=== PATIENT | female | born 1970 | race Caucasian/White ===

== ENCOUNTER → 2016-05-07 | Outpatient (CLI) | payer BC ==
--- NOTE | 2016-05-07 15:47 | CR ---
EXAMINATION: Abdomen HISTORY: Pain COMPARISON: 04/25/2015 TECHNIQUE: AP views FINDINGS: There is a nonobstructive bowel gas pattern noted. Clips are noted within the right upper quadrant. No abnormal calcifications project over the kidneys. Mild sclerotic areas are noted within the right ilium and left femoral head, unchanged. Otherwise the visualized osseous structures appea r normal. IMPRESSION: 1. No acute findings demonstrated within the abdomen.
== END ==
LOC: MW.CHOBGYN 14:23
PROVIDERS: ATTEND Nurse Practitioner Women's Health
DX: R10.9 Unspecified abdominal pain (principal)
CPT/HCPCS: 74000; 74000-26; 81001

== ENCOUNTER → 2016-06-04 | Outpatient (CLI) | payer BC ==
--- NOTE | 2016-06-04 17:06 | CT ---
CT of the abdomen and pelvis without contrast. HISTORY: Renal calculus TECHNIQUE: Axial CT images were obtained of the abdomen and pelvis without contrast. Coronal and sag ittal reconstructions obtained. FINDINGS: The lung bases are clear, no pleural effusion. There is minimal fatty infiltration of the liver. The spleen, adrenal glands, and pancreas appear un remarkable for noncontrast examination. Cholecystectomy clips are noted. There is no bulky retroperi toneal lymphadenopathy. No abdominal ascites. Small punctate 1 mm nonobstructing left renal stones are noted. No evidence of obstructive uropathy bilaterally. The large and small bowel are normal in caliber without evidence of obstruction. There is no bulky pelvic lymphadenopathy. No free fluid. No free air. The urinary bladder is decompressed. The visualized osseous structures appear normal. IMPRESSION: 1. Punctate nonobstructing left renal stones. 2. Cholecystectomy and appendectomy. 3. Minimal fatty infiltration of the liver.
== END ==
LOC: MW.CHUR 15:48
PROVIDERS: ATTEND Urology
DX: R10.9 Unspecified abdominal pain (principal); N20.0 Calculus of kidney; R50.9 Fever, unspecified; Z90.49 Acquired absence of other specified parts of digestive tract
CPT/HCPCS: 74176; 74176-26; 81001

== ENCOUNTER 2018-09-08 21:51 | Emergency (ER) | payer BC ==
--- NOTE | 2018-09-08 22:46 | EDM.PDOC ---
ED HPI GENERAL MEDICAL PROBLEM - General Chief Complaint: Trauma Stated Complaint: INJURED PELVIS,FELL OFF HORSE Time Seen by Provider: 09/08/18 21:56 right hip/back Pain Score (Numeric/FACES): 5 - Related Data Allergies Allergy/AdvReac Type Severity Reaction Status Date / Time Coconut Allergy Swelling Verified 09/08/18 21:58 Penicillins Allergy Anaphylactic Verified 09/08/18 21:58 Shock Sulfa (Sulfonamide Allergy Seizure Verified 09/08/18 21:58 Antibiotics) dermabond Allergy wound Uncoded 09/08/18 21:58 infection Home Meds: Home Meds Atenolol [Tenormin] 50 mg PO DAILY 06/01/14 [History] Montelukast Sodium [Singulair] 1 tab PO BEDTIME 06/01/14 [History] metFORMIN HCl [Metformin HCl] 1 tab PO DAILY 06/01/14 [History] Venlafaxine HCl [Venlafaxine ER] 75 mg PO BID 09/11/15 [History] Zolpidem Tartrate 10 mg PO BEDTIME PRN 09/11/15 [History] Cholecalciferol (Vitamin D3) [Vitamin D3] 2,000 unit PO DAILY 09/14/15 [History] Lansoprazole 15 mg PO DAILY 09/14/15 [History] oxyCODONE HCl/Acetaminophen [Percocet 7.5-325 mg Tablet] 1 each PO Q4HR PRN #30 tablet 09/14/15 [Rx] Past Medical History HEENT History: Reports: Other (See Below) Other HEENT History: wears contacts/glasses Cardiovascular History: Reports: Hypertension Respiratory History: Reports: Asthma, Sleep Apnea Other Respiratory History: recently diagnosed with sleep apnea, states she does not have CPAP machine yet Gastrointestinal History: Reports: GERD, Hepatitis Other Gastrointestinal History: hepatitis B Genitourinary History: Reports: Renal Calculus 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: Polycystic Ovaries, Musculoskeletal History: Reports: None Neurological History: Reports: None Psychiatric History: Reports: Anxiety, Depression Endocrine/Metabolic History: Reports: Obesity/BMI 30+ Hematologic History: Reports: Anemia Immunologic History: Reports: None Oncologic (Cancer) History: Reports: None Dermatologic History: Reports: None - Infectious Disease History Infectious Disease History: Reports: Chicken Pox - Past Surgical History Head Surgeries/Procedures: Reports: None GI Surgical History: Reports: Appendectomy, Cholecystectomy Other GI Surgeries/Procedures: Gastric sleeve Female Surgical History: Reports: Section, Lithotripsy/ESWL Social & Family History - Family History Family Medical History: Noncontributory - Tobacco Use Smoking Status *Q: Never Smoker - Recreational Drug Use Recreational Drug Use: No Course - Vital Signs Last Recorded V/S: Last Vital Signs Temp 36.9 C 09/08/18 21:58 Pulse 76 09/08/18 21:58 Resp 20 09/08/18 21:58 BP 200/84 H 09/08/18 21:58 Pulse Ox 97 09/08/18 21:58 - Orders/Labs/Meds Orders: Active Orders 24 hr Category Date Time Status Hip Min 2V or 3V w Pelvis Rt [CR] Stat Exams 09/08/18 21:58 Ordered Lumbar Spine 2 or 3V [CR] Stat Exams 09/08/18 21:58 Ordered Departure - Discharge Information - My Orders Last 24 Hours: My Active Orders 09/08/18 21:58 Hip Min 2V or 3V w Pelvis Rt [CR] Stat Lumbar Spine 2 or 3V [CR] Stat - Assessment/Plan Last 24 Hours: My Active Orders 09/08/18 21:58 Hip Min 2V or 3V w Pelvis Rt [CR] Stat Lumbar Spine 2 or 3V [CR] Stat
[2018-09-08] MEDS ORDERED: Morphine 10 MG/ML Syringe IM ONE (22:51)
[2018-09-08] MEDS ORDERED: Ondansetron 4 MG Tab.DIS PO ONE (22:51)
--- NOTE | 2018-09-08 23:01 | CR ---
Indication: Fall off horse Technique: Pelvis and right hip 3 views, 4 films Comparison: None Findings: Bones: No definite evidence of fracture. Likely bone island left femoral head. Joint spaces: Joint spaces are preserved. No degenerative changes. Soft tissues: Unremarkable. Impression: Unremarkable right hip series. Dictated by Vladimir Ferro MD @ Sep 08 2018 10:57PM Signed by Dr. Vladimir Ferro @ Sep 08 2018 10:59PM
--- NOTE | 2018-09-08 23:01 | CR ---
INDICATION: Fell off horse TECHNIQUE: Lumbar spine 3 view COMPARISON: None FINDINGS: Bones: Alignment is normal. No fractures or significant bone lesions. Joints: Modest disc space narrowing at L2-3, L3-4 and L4-5 with small osteophytes. Soft tissues: Right upper quadrant surgical clips. Moderate amount of stool within the colon. IMPRESSION: Mild degenerative disc disease L2-3, L3-4 and L4-5 without evidence of lumbar spine fracture. Dictated by Vladimir Ferro MD @ Sep 08 2018 10:59PM Signed by Dr. Vladimir Ferro @ Sep 08 2018 11:00PM
--- NOTE | 2018-09-08 23:12 | EDM.PDOC ---
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 She indicates they were finishing up the exercise run with a trot when another horse went in front of her horse causing the horse to want to stop. She states the horse went one way and she went to the other way falling on her right side to the riding arena ground. She states to that she felt the horse's hoof connect with her right side as he was trying to regain his balance and footing, while she was in the process of her fall to the ground as well. She proceeded to get back on the horse and during her walk home pelvic pain ensued. She continued to ride the horse home in a walking fashion approximately 6 blocks as she was afraid to get off the horse for fear she could not walk. She does believe she hit her head on the right forehead area however denies any loss of consciousness. Review of systems: As per history of present illness and below otherwise all systems reviewed and negative. Past medical history: As per history of present illness and as reviewed below otherwise noncontributory. Surgical history: As per history of present illness and as reviewed below otherwise noncontributory. Social history: No reported history of drug or alcohol abuse. Family history: As per history of present illness and as reviewed below otherwise noncontributory. Physical exam: General: Developed well-nourished 48-year-old female presents in acute distress due to right hip and pelvic pain. HEENT: Atraumatic, normocephalic, pupils reactive, negative for conjunctival pallor or scleral icterus, mucous membranes moist, throat clear, neck supple, nontender, trachea midline. No swelling, drop offs, or crepitus. Lungs: Clear to auscultation, breath sounds equal bilaterally, chest nontender. No swelling, drop offs, or crepitus. She does complain of tenderness to the 6- 7th rib area with palpation. Heart: S1S2, regular, negative for clicks, rubs, or JVD. Abdomen: Soft, nondistended, nontender. Negative for masses or hepatosplenomegaly. Negative for costovertebral tenderness. No bruising noted. Pelvis: Without bruising. Genitourinary: No blood noted from urethra/vaginal area. Rectal: Deferred. Extremities: Atraumatic, negative for cords or calf pain. Neurovascular unremarkable. Skin: Intact, warm, dry. No lesions, rashes are noted. Neuro: Awake, alert, oriented. Cranial nerves II through XII unremarkable. Cerebellum unremarkable. Motor and sensory unremarkable throughout. Exam nonfocal. Diagnostics: Right hip/pelvis Xray LS Xray CXR HGB Therapeutics: Morphine Sulfate 8mg IM Zofran 4mg ODT Impression: Plan: Definitive disposition and diagnosis as appropriate pending reevaluation and review of above. (Jen Calderon) - Related Data Allergies Allergy/AdvReac Type Severity Reaction Status Date / Time [place] Allergy Swelling Verified 09/08/18 21:58 Penicillins Allergy Anaphylactic Verified 09/08/18 21:58 Shock Sulfa (Sulfonamide Allergy Seizure Verified 09/08/18 21:58 Antibiotics) dermabond Allergy wound Uncoded 09/08/18 21:58 infection Home Meds: Home Meds Atenolol [Tenormin] 50 mg PO DAILY 06/01/14 [History] Montelukast Sodium [Singulair] 1 tab PO BEDTIME 06/01/14 [History] metFORMIN HCl [Metformin HCl] 1 tab PO DAILY 06/01/14 [History] Venlafaxine HCl [Venlafaxine ER] 75 mg PO BID 09/11/15 [History] Zolpidem Tartrate 10 mg PO BEDTIME PRN 09/11/15 [History] Cholecalciferol (Vitamin D3) [Vitamin D3] 2,000 unit PO DAILY 09/14/15 [History] Lansoprazole 15 mg PO DAILY 09/14/15 [History] oxyCODONE HCl/Acetaminophen [Percocet 7.5-325 mg Tablet] 1 each PO Q4HR PRN #30 tablet 09/14/15 [Rx] Past Medical History HEENT History: Reports: Other (See Below) Other HEENT History: wears contacts/glasses Cardiovascular History: Reports: Hypertension Respiratory History: Reports: Asthma, Sleep Apnea Other Respiratory History: recently diagnosed with sleep apnea, states she does not have CPAP machine yet Gastrointestinal History: Reports: GERD, Hepatitis Other Gastrointestinal History: hepatitis B Genitourinary History: Reports: Renal Calculus 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: 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, Musculoskeletal History: Reports: None Neurological History: Reports: None Psychiatric History: Reports: Anxiety, Depression Endocrine/Metabolic History: Reports: Obesity/BMI 30+ Hematologic History: Reports: Anemia Immunologic History: Reports: None Oncologic (Cancer) History: Reports: None Dermatologic History: Reports: None - Infectious Disease History Infectious Disease History: Reports: Chicken Pox - Past Surgical History Head Surgeries/Procedures: Reports: None GI Surgical History: Reports: Appendectomy, Cholecystectomy Other GI Surgeries/Procedures: Gastric sleeve Female Surgical History: Reports: Section, Lithotripsy/ESWL <Jen Calderon - Last Filed: 09/08/18 22:57> Social & Family History - Family History Family Medical History: Noncontributory - Tobacco Use Smoking Status *Q: Never Smoker - Recreational Drug Use Recreational Drug Use: No <Jen Calderon - Last Filed: 09/08/18 22:57> Review of Systems - Review of Systems Review Of Systems: ROS reveals no pertinent complaints other than HPI. <Asuncion Boyle R - Last Filed: 09/09/18 00:05> ED EXAM, GENERAL - Physical Exam Exam: See Below <Asuncion Boyle R - Last Filed: 09/09/18 00:05> - Vital Signs Last Recorded V/S: Last Vital Signs Temp 36.9 C 09/08/18 21:58 Pulse 76 09/08/18 21:58 Resp 20 09/08/18 21:58 BP 200/84 H 09/08/18 21:58 Pulse Ox 97 09/08/18 21:58 - Orders/Labs/Meds Orders: Active Orders 24 hr Category Date Time Status Admission Status [Patient Status] [ADT] Stat ADT 09/08/18 22:53 Active Labs: Laboratory Tests 09/08/18 Range/Units 22:57 Hgb 13.3 (12.0-16.0) g/dL Meds: Medications Discontinued Medications Generic Name Dose Route Start Last Admin Trade Name Vignesh PRN Reason Stop Dose Admin Morphine Sulfate 8 mg 09/08/18 22:51 09/08/18 22:59 Morphine IM 09/08/18 22:52 8 mg ONETIME ONE Administration Ondansetron HCl 4 mg 09/08/18 22:51 09/08/18 22:59 Zofran Odt PO 09/08/18 22:52 4 mg ONETIME ONE Administration Departure <Jen Calderon - Last Filed: 09/08/18 22:57> - Departure Time of Disposition: 00:03 Condition: Good <BoyleAsuncion R - Last Filed: 09/09/18 00:05> - Departure Disposition: Home, Self-Care 01 Clinical Impression: Trauma - Discharge Information Referrals: PCP,Unknown [Primary Care Provider] - Mirlande Sheth FLOORS BUFFER [Ordering Only Provider] - Forms: ED Department Discharge Additional Instructions: The following information is given to patients seen in the emergency department who are being discharged to home. This information is to outline your options for follow-up care. We provide all patients seen in our emergency department with a follow-up referral. The need for follow-up, as well as the timing and circumstances, are variable depending upon the specifics of your emergency department visit. If you don't have a primary care physician on staff, we will provide you with a referral. We always advise you to contact your personal physician following an emergency department visit to inform them of the circumstance of the visit and for follow-up with them and/or the need for any referrals to a consulting specialist. The emergency department will also refer you to a specialist when appropriate. This referral assures that you have the opportunity for follow-up care with a specialist. All of these measure are taken in an effort to provide you with optimal care, which includes your follow-up. Under all circumstances we always encourage you to contact your private physician who remains a resource for coordinating your care. When calling for follow-up care, please make the office aware that this follow-up is from your recent emergency room visit. If for any reason you are refused follow-up, please contact the [facility] Emergency Department at and asked to speak to the emergency department charge nurse. 1. Flexeril 1 tab every 8 hours as needed for muscle spasm. No driving or operating machinery 2. Hydrocodone 5 mg 1 tab every 3-4 hours as needed for pain. No driving or operating machinery 3. May use walker for support 4. Follow-up with primary care provider. - My Orders Last 24 Hours: My Active Orders 09/08/18 22:53 Admission Status [Patient Status] [ADT] Stat - Assessment/Plan Last 24 Hours: My Active Orders 09/08/18 22:53 Admission Status [Patient Status] [ADT] Stat
--- NOTE | 2018-09-08 23:30 | CR ---
INDICATION: right lower chest pain, kicked by horse TECHNIQUE: Chest 1 view. COMPARISON: None. FINDINGS: Cardiovascular and mediastinum: Heart size and vasculature are normal in caliber and appearance. Mediastinum is within normal limits. Lungs and pleural space: Lungs are clear. No sign of infiltrate or mass. No sign of pleural effusion. No pneumothorax. Bones and soft tissues: No significant findings. IMPRESSION: Unremarkable chest. Dictated by: Lauro Montemayor MD @ 09/08/2018 23:28:11 (Electronically Signed)
[2018-09-09 00:21] VITALS: BP 145/75
== END 2018-09-09 00:10 | disposition home or self-care (01) ==
LOC: MW.ED 21:51
DX: M25.551 Pain in right hip (principal); R10.2 Pelvic and perineal pain; R51 Headache; M54.5 Low back pain; I10 Essential (primary) hypertension; J45.909 Unspecified asthma, uncomplicated; K21.9 Gastro-esophageal reflux disease without esophagitis; F41.9 Anxiety disorder, unspecified; F32.9 Major depressive disorder, single episode, unspecified; Z79.899 Other long term (current) drug therapy; V80.010A Animal-rider injured by fall from or being thrown from horse in noncollision accident, initial encounter
CPT/HCPCS: 36415; 71045; 72100; 73502; 85018; 96372; 99284; A9270; J2270

== ENCOUNTER 2020-10-10 20:08 | Emergency (ER) | payer BC ==
[2020-10-10 20:47] VITALS: BP 170/78; PULSE 70
[2020-10-10] MEDS ORDERED: Sodium Chloride 0.9% 10 ML Syringe FLUSH PRN (21:18)
[2020-10-10] MEDS ORDERED: Sodium Chloride 0.9% 1,000 ML IV ONE (21:18)
[2020-10-10] MEDS ORDERED: Sodium Chloride 0.9% 2.5 ML Syringe FLUSH PRN (21:18)
[2020-10-10 22:26] LABS: BLOOD UREA NITROGEN,BUN 19 mg/dL (7.0-18.0); CARBON DIOXIDE,CO2 30.1 mmol/L (21.0-32.0); CHLORIDE,CL 99 mmol/L (98-107); GLUCOSE RANDOM 140 mg/dL (74-106); POTASSIUM,K 3.3 mmol/L (3.5-5.1); SODIUM,NA 140 mmol/L (136-145)
--- NOTE | 2020-10-10 23:34 | EDM.PDOC ---
ED HPI GENERAL MEDICAL PROBLEM - General Chief Complaint: General Stated Complaint: PASSING OUT Time Seen by Provider: 10/10/20 21:41 - History of Present Illness INITIAL COMMENTS - FREE TEXT/NARRATIVE: HISTORY AND PHYSICAL: History of present illness: This a 50-year-old female who presents ER today secondary to dizziness and passing out on her daughter earlier today. Patient has any recent fevers, shakes, chills, nausea, vomiting, diarrhea, dysuria, frequency, urgency, chest pain, shortness of breath. Patient reports that she had decreased p.o. intake and abnormal stools over the last several days. Patient reports that she feels dizzy when she stands up or turns her head. Patient denies any vertigo type symptoms but more dizziness and feels like she is in a pass out. Patient has any chest pain or abdominal pain. Patient has any recent cough cold or rhinorrhea. Patient has any Covid exposures. Patient denies any weakness to her upper or lower extremities. Patient reports that she tried to contact her doctor to get call back so came to the ED for further evaluation before she can see her physician. Review of systems: As per history of present illness and below otherwise all systems reviewed and negative. Past medical history: As per history of present illness and as reviewed below otherwise noncontributory. Surgical history: As per history of present illness and as reviewed below otherwise noncontribu tory. Social history: No reported history of drug abuse. Family history: As per history of present illness and as reviewed below otherwise noncontributory. Physical exam: This patient was seen and evaluated during the 2019 SARS-CoV-2 novel coronavirus pandemic period. Community viral transmission is ongoing at time of this encounter and the emergency department is operating under pandemic response procedures. Constitutional: Patient is oriented to person, place, and time. Appears well- developed and well-nourished. No distress. HEENT: Moist mucous membranes. Tympanic membranes pearly aldana without any erythema or fluid. No nystagmus. Head: Normocephalic and atraumatic Eyes: Right eye exhibits no discharge. Left eye exhibits no discharge. No scleral icterus Neck: Normal range of motion. No tracheal deviation present. Cardiovascular: Normal rate and regular rhythm. Pulmonary: Effort normal, no respiratory distress. Abdominal: No distention Musculoskeletal: Normal range of motion Neurologic: Alert and oriented to person, place and time. Skin: [place], warm and dry. Psychiatric: Normal mood and affect. Behavior is normal. Judgment and thought content normal. Nursing note and vital signs have been reviewed Neuro: A&Ox3. Cranial nerves II-XII grossly intact, 5/5 strength to bilateral upper and lower extremities, s no nystagmus, PERRLA, EOMI, normal speech, Diagnostics: EKG date 10/10/2020 9:46 PM EKG: As interpreted by ER physician: [place]: Nonspecific ST-T wave abnormalities Normal axis No evidence of ST elevation KS Normal sinus rhythm heart rate of 65 Therapeutics: [] Assessment and plan: 50-year-old female who presents ER today secondary to dizziness and having episode of passing out on her daughter. Patient's physical exam in the ED is unremarkable. Patient's labs are all within normal limits. Patient's EKG was unremarkable. Patient feels much improved after 1 L of NSS. Patient's blood sugar is elevated at 190 on arrival. Patient's electrolytes are unremarkable and her hemoglobin is normal. Patient has been stable in the ED throughout the remainder of her stay. At this time, I feel the patient is stable for discharge home with outpatient work-up with her primary care physician. Reassessment at the time of disposition demonstrates that the patient is in no acute distress. The patient has remained stable throughout the entire ED visit and is without objective evidence for acute process requiring urgent intervention or hospitalization. The patient is stable for discharge, counseling is provided as documented above, discussed symptomatic treatment and specific conditions for return. I have spoken with the patient/caregiver and discussed todays findings, in addition to providing specific details for the plan of care. Questions are answered and there is agreement with the plan. Definitive disposition and diagnosis as appropriate pending reevaluation and review of above. - Related Data Allergies Allergy/AdvReac Type Severity Reaction Status Date / Time Coconut Allergy Swelling Verified 10/10/20 20:25 Penicillins Allergy Anaphylactic Verified 10/10/20 20:25 Shock Sulfa (Sulfonamide Allergy Seizure Verified 10/10/20 20:25 Antibiotics) dermabond Allergy wound Uncoded 10/10/20 20:25 infection Home Meds: Home Meds Montelukast Sodium [Singulair] 1 tab PO BEDTIME 06/01/14 [History] atenoloL [Tenormin] 50 mg PO DAILY 06/01/14 [History] metFORMIN HCl [Metformin HCl] 1 tab PO DAILY 06/01/14 [History] Venlafaxine HCl [Venlafaxine ER] 225 mg PO DAILY 09/11/15 [History] Zolpidem Tartrate 10 mg PO BEDTIME PRN 09/11/15 [History] Cholecalciferol (Vitamin D3) [Vitamin D3] 2,000 unit PO DAILY 09/14/15 [History] Lansoprazole 15 mg PO DAILY 09/14/15 [History] oxyCODONE HCl/Acetaminophen [Percocet 7.5-325 mg Tablet] 1 each PO Q4HR PRN #30 tablet 09/14/15 [Rx] Past Medical History HEENT History: Reports: Other (See Below) Other HEENT History: wears contacts/glasses Cardiovascular History: Reports: Hypertension Respiratory History: Reports: Asthma, Sleep Apnea Other Respiratory History: recently diagnosed with sleep apnea, states she does not have CPAP machine yet Gastrointestinal History: Reports: GERD, Hepatitis Other Gastrointestinal History: hepatitis B Genitourinary History: Reports: Renal 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 History: Reports: Polycystic Ovaries, Musculoskeletal History: Reports: None Neurological History: Reports: None Psychiatric History: Reports: Anxiety, Depression Endocrine/Metabolic History: Reports: Obesity/BMI 30+ Hematologic History: Reports: Anemia Immunologic History: Reports: None Oncologic (Cancer) History: Reports: None Dermatologic History: Reports: None - Infectious Disease History Infectious Disease History: Reports: Chicken Pox - Past Surgical History Head Surgeries/Procedures: Reports: None GI Surgical History: Reports: Appendectomy, Cholecystectomy Other GI Surgeries/Procedures: Gastric sleeve Female Surgical History: Reports: Section, Lithotripsy/ESWL Social & Family History - Family History Family Medical History: No Pertinent Family History - Tobacco Use Tobacco Use Status *Q: Never Tobacco User Second Hand Smoke Exposure: No - Caffeine Use Caffeine Use: Reports: None - Recreational Drug Use Recreational Drug Use: No ED ROS GENERAL - Review of Systems Review Of Systems: See Below ED EXAM, GENERAL - Physical Exam Exam: See Below Course - Vital Signs Last Recorded V/S: Last Vital Signs Temp 98.2 F 10/10/20 20:20 Pulse 70 10/10/20 20:20 Resp 18 10/10/20 20:20 BP 170/78 H 10/10/20 20:20 Pulse Ox 98 10/10/20 20:20 - Orders/Labs/Meds Orders: Active Orders 24 hr Category Date Time Status Sodium Chloride 0.9% [Saline Flush] Med 10/10/20 21:18 Active 10 ml FLUSH ASDIRECTED PRN Sodium Chloride 0.9% [Saline Flush] Med 10/10/20 21:18 Active 2.5 ml FLUSH ASDIRECTED PRN Saline Lock Insert [OM.PC] Stat Oth 10/10/20 21:18 Ordered Medication Orders Sodium Chloride (Sodium Chloride 0.9% 10 Ml Syringe) 10 ml FLUSH ASDIRECTED PRN PRN Reason: Keep Vein Open Sodium Chloride (Sodium Chloride 0.9% 2.5 Ml Syringe) 2.5 ml FLUSH ASDIRECTED PRN PRN Reason: Keep Vein Open Labs: Laboratory Tests 10/10/20 10/10/20 10/10/20 Range/Units 20:23 21:45 21:45 WBC 6.40 (4.0-11.0) K/uL RBC 4.94 (4.30-5.90) M/uL Hgb 13.3 (12.0-16.0) g/dL Hct 40.1 (36.0-46.0) % MCV 81.2 (80.0-98.0) fL MCH 26.9 L (27.0-32.0) pg MCHC 33.2 (31.0-37.0) g/dL RDW Std Deviation 48.3 (28.0-62.0) fl RDW Coeff of Gin 16 H (11.0-15.0) % Plt Count 182 (150-400) K/uL MPV 10.40 (7.40-12.00) fL Neut % (Auto) 72.0 (48.0-80.0) % Lymph % (Auto) 22.7 (16.0-40.0) % Keith % (Auto) 4.8 (0.0-15.0) % Eos % (Auto) 0.2 (0.0-7.0) % Baso % (Auto) 0.3 (0.0-1.5) % Neut # (Auto) 4.6 (1.4-5.7) K/uL Lymph # (Auto) 1.5 (0.6-2.4) K/uL Keith # (Auto) 0.3 (0.0-0.8) K/uL Eos # (Auto) 0.0 (0.0-0.7) K/uL Baso # (Auto) 0.0 (0.0-0.1) K/uL Nucleated RBC % 0.0 /100WBC Nucleated RBCs # 0 K/uL Sodium 140 (136-145) mmol/L Potassium 3.3 L (3.5-5.1) mmol/L Chloride 99 (98-107) mmol/L Carbon Dioxide 30.1 (21.0-32.0) mmol/L BUN 19 H (7.0-18.0) mg/dL Creatinine 1.0 (0.6-1.0) mg/dL Est Cr Clr Drug Dosing 58.76 mL/min Estimated GFR (MDRD) 58.9 ml/min Glucose 140 H (74-106) mg/dL POC Glucose 198 H (70-99) mg/dL Calcium 9.2 (8.5-10.1) mg/dL Total Bilirubin 0.3 (0.2-1.0) mg/dL AST 17 (15-37) IU/L ALT 29 (14-63) IU/L Alkaline Phosphatase 67 (46-116) U/L Troponin I < 0.050 (0.000-0.056) ng/mL Total Protein 7.6 (6.4-8.2) g/dL Albumin 4.0 (3.4-5.0) g/dL Globulin 3.6 (2.6-4.0) g/dL Albumin/Globulin Ratio 1.1 (0.9-1.6) Urine Color Urine Appearance Urine pH (5.0-8.0) Ur Specific [place] (1.001-1.035) Urine Protein (NEGATIVE) mg/dL Urine Glucose (UA) (NEGATIVE) mg/dL Urine Ketones (NEGATIVE) mg/dL Urine Occult Blood (NEGATIVE) Urine Nitrite (NEGATIVE) Urine Bilirubin (NEGATIVE) Urine Urobilinogen (<2.0) EU/dL Ur Leukocyte Esterase (NEGATIVE) 10/10/20 Range/Units 22:45 WBC (4.0-11.0) K/uL RBC (4.30-5.90) M/uL Hgb (12.0-16.0) g/dL Hct (36.0-46.0) % MCV (80.0-98.0) fL MCH (27.0-32.0) pg MCHC (31.0-37.0) g/dL RDW Std Deviation (28.0-62.0) fl RDW Coeff of Gin (11.0-15.0) % Plt Count (150-400) K/uL MPV (7.40-12.00) fL Neut % (Auto) (48.0-80.0) % Lymph % (Auto) (16.0-40.0) % Keith % (Auto) (0.0-15.0) % Eos % (Auto) (0.0-7.0) % Baso % (Auto) (0.0-1.5) % Neut # (Auto) (1.4-5.7) K/uL Lymph # (Auto) (0.6-2.4) K/uL Keith # (Auto) (0.0-0.8) K/uL Eos # (Auto) (0.0-0.7) K/uL Baso # (Auto) (0.0-0.1) K/uL Nucleated RBC % /100WBC Nucleated RBCs # K/uL Sodium (136-145) mmol/L Potassium (3.5-5.1) mmol/L Chloride (98-107) mmol/L Carbon Dioxide (21.0-32.0) mmol/L BUN (7.0-18.0) mg/dL Creatinine (0.6-1.0) mg/dL Est Cr Clr Drug Dosing mL/min Estimated GFR (MDRD) ml/min Glucose (74-106) mg/dL POC Glucose (70-99) mg/dL Calcium (8.5-10.1) mg/dL Total Bilirubin (0.2-1.0) mg/dL AST (15-37) IU/L ALT (14-63) IU/L Alkaline Phosphatase (46-116) U/L Troponin I (0.000-0.056) ng/mL Total Protein (6.4-8.2) g/dL Albumin (3.4-5.0) g/dL Globulin (2.6-4.0) g/dL Albumin/Globulin Ratio (0.9-1.6) Urine Color YELLOW Urine Appearance CLEAR Urine pH 6.0 (5.0-8.0) Ur Specific [place] >= 1.030 (1.001-1.035) Urine Protein NEGATIVE (NEGATIVE) mg/dL Urine Glucose (UA) NEGATIVE (NEGATIVE) mg/dL Urine Ketones NEGATIVE (NEGATIVE) mg/dL Urine Occult Blood NEGATIVE (NEGATIVE) Urine Nitrite NEGATIVE (NEGATIVE) Urine Bilirubin NEGATIVE (NEGATIVE) Urine Urobilinogen 0.2 (<2.0) EU/dL Ur Leukocyte Esterase NEGATIVE (NEGATIVE) Meds: Medications Generic Name Dose Route Start Last Admin Trade Name Freq PRN Reason Stop Dose Admin Sodium Chloride 10 ml 10/10/20 21:18 Sodium Chloride 0.9% 10 Ml Syringe FLUSH ASDIRECTED PRN Keep Vein Open Sodium Chloride 2.5 ml 10/10/20 21:18 Sodium Chloride 0.9% 2.5 Ml Syringe FLUSH ASDIRECTED PRN Keep Vein Open Discontinued Medications Generic Name Dose Route Start Last Admin Trade Name Freq PRN Reason Stop Dose Admin Sodium Chloride 1,000 mls @ 999 mls/hr 10/10/20 21:18 10/10/20 21:40 Normal Saline IV 10/10/20 22:18 999 mls/hr .Bolus ONE Administration Departure - Departure Time of Disposition: 23:34 Disposition: Home, Self-Care 01 Condition: Good Clinical Impression: Dizziness - Discharge Information Instructions: Dizziness, [id number] Referrals: Wei Whiteside MD [Primary Care Provider] - Additional Instructions: He was seen and evaluated in ER today secondary to episode of dizziness and passing out on top of her daughter. Your labs and EKG are all within normal limits. You are given 1 L of fluids here in the ED. Your symptoms may be related to some dehydration and your blood sugar being slightly elevated. Please make an appointment to follow-up with your doctor for reevaluation. The following information is given to patients seen in the emergency department who are being discharged to home. This information is to outline your options for follow-up care. We provide all patients seen in our emergency department with a follow-up referral. The need for follow-up, as well as the timing and circumstances, are variable depending upon the specifics of your emergency department visit. If you don't have a primary care physician on staff, we will provide you with a referral. We always advise you to contact your personal physician following an emergency department visit to inform them of the circumstance of the visit and for follow-up with them and/or the need for any referrals to a consulting specialist. The emergency department will also refer you to a specialist when appropriate. This referral assures that you have the opportunity for follow-up care with a specialist. All of these measure are taken in an effort to provide you with optimal care, which includes your follow-up. Under all circumstances we always encourage you to contact your private physician who remains a resource for coordinating your care. When calling for follow-up care, please make the office aware that this follow-up is from your recent emergency room visit. If for any reason you are refused follow-up, please contact the [facility] Emergency Department at and asked to speak to the emergency department charge nurse. [facility] [address] [place] [id number] [place] [address] Sepsis Event Note (ED) - Evaluation Sepsis Screening Result: No Definite Risk - Focused Exam Vital Signs: Vital Signs Temp Pulse Resp BP Pulse Ox 10/10/20 20:20 98.2 F 70 18 170/78 H 98 - My Orders Last 24 Hours: My Active Orders 10/10/20 21:18 Sodium Chloride 0.9% [Saline Flush] 10 ml FLUSH ASDIRECTED PRN Sodium Chloride 0.9% [Saline Flush] 2.5 ml FLUSH ASDIRECTED PRN Saline Lock Insert [OM.PC] Stat - Assessment/Plan Last 24 Hours: My Active Orders 10/10/20 21:18 Sodium Chloride 0.9% [Saline Flush] 10 ml FLUSH ASDIRECTED PRN Sodium Chloride 0.9% [Saline Flush] 2.5 ml FLUSH ASDIRECTED PRN Saline Lock Insert [OM.PC] Stat
== END 2020-10-10 23:42 | disposition home or self-care (01) ==
LOC: MW.ED 20:08
DX: R42 Dizziness and giddiness (principal); E66.9 Obesity, unspecified; Z68.34 Body mass index [BMI] 34.0-34.9, adult; Z88.0 Allergy status to penicillin; Z91.018 Allergy to other foods; Z88.2 Allergy status to sulfonamides; Z91.048 Other nonmedicinal substance allergy status; Z79.84 Long term (current) use of oral hypoglycemic drugs
CPT/HCPCS: 36415; 80053; 81003; 82947; 84484; 85025; 93005; 99284; J7030; 93010; 99283

== ENCOUNTER 2021-06-25 01:26 | Emergency (ER) | payer BC ==
[2021-06-25] MEDS ORDERED: Ketorolac 30 MG/ML SDV IM ONE (01:54)
[2021-06-25 03:47] VITALS: BP 142/79; PULSE 87
== END 2021-06-25 03:05 | disposition home or self-care (01) ==
LOC: MW.ED 01:26
DX: S99.921A Unspecified injury of right foot, initial encounter (principal); I10 Essential (primary) hypertension; K21.9 Gastro-esophageal reflux disease without esophagitis; E66.9 Obesity, unspecified; Z68.28 Body mass index [BMI] 28.0-28.9, adult; Z88.2 Allergy status to sulfonamides; Z88.0 Allergy status to penicillin; Z88.8 Allergy status to other drugs, medicaments and biological substances; W20.8XXA Other cause of strike by thrown, projected or falling object, initial encounter
CPT/HCPCS: 73610; 73630; 96372; 99283; J1885

== ENCOUNTER 2022-06-16 13:56 | Emergency (ER) | payer BC ==
[2022-06-16 14:59] VITALS: BP 132/62; PULSE 72
[2022-06-16] MEDS ORDERED: Diphtheria,Pertussis(Acell),Tetanus Vaccine 0.5 ML Syringe IM ONE (15:20)
== END 2022-06-16 15:43 | disposition home or self-care (01) ==
LOC: MW.ED 13:56
DX: S61.551A Open bite of right wrist, initial encounter (principal); I10 Essential (primary) hypertension; E66.9 Obesity, unspecified; Z68.34 Body mass index [BMI] 34.0-34.9, adult; Z91.018 Allergy to other foods; Z88.0 Allergy status to penicillin; Z88.2 Allergy status to sulfonamides; Z91.048 Other nonmedicinal substance allergy status; Z79.899 Other long term (current) drug therapy; Z90.49 Acquired absence of other specified parts of digestive tract; Z23 Encounter for immunization; W54.0XXA Bitten by dog, initial encounter
CPT/HCPCS: 73110-26-RT; 73110-RT; 90471; 90715; 99283; 99283-25

== ENCOUNTER 2023-11-04 13:40 | Emergency (ER) | payer BC ==
[2023-11-04 13:49] VITALS: BP 105/75; PULSE 71
[2023-11-04] MEDS: Ibuprofen 600 MG Tab PO ONE (14:00)
== END 2023-11-04 15:17 | disposition home or self-care (01) ==
LOC: MW.ED 13:40
DX: S70.01XA Contusion of right hip, initial encounter (principal); M54.50 Low back pain, unspecified; J45.909 Unspecified asthma, uncomplicated; I10 Essential (primary) hypertension; K21.9 Gastro-esophageal reflux disease without esophagitis; E66.9 Obesity, unspecified; Z90.49 Acquired absence of other specified parts of digestive tract; Z79.899 Other long term (current) drug therapy; Z88.0 Allergy status to penicillin; Z88.2 Allergy status to sulfonamides; Z91.018 Allergy to other foods; Z91.048 Other nonmedicinal substance allergy status; Z75.8 Other problems related to medical facilities and other health care; W11.XXXA Fall on and from ladder, initial encounter
CPT/HCPCS: 73502; 99283; A9270

== ENCOUNTER 2024-08-18 14:42 | Emergency (ER) | payer BC, OTHER ==
[2024-08-18] MEDS: fentaNYL 50 MCG/ML SDV IM ONE (14:52)
[2024-08-18] MEDS: fentaNYL 50 MCG/ML SDV ONE (14:54)
[2024-08-18] MEDS: Lactated Ringers 1,000 ML IV STA (14:54)
[2024-08-18] MEDS: Ondansetron 4 MG/2 ML SDV ONE (14:54)
[2024-08-18] MEDS: Ondansetron 4 MG/2 ML SDV IVPUSH ONE (14:55)
[2024-08-18] MEDS: fentaNYL 50 MCG/ML SDV IVPUSH ONE (14:57)
[2024-08-18 14:59] VITALS: BP 147/76; PULSE 66
[2024-08-18 14:59] LABS: BASOPHILS ABSOLUTE AUTO 0.05 K/uL (0.00-0.20); BASOPHILS PERCENT AUTO 0.4 % (0.0-1.0); EOSINOPHILS ABSOLUTE AUTO 0.16 K/uL (0.00-0.45); EOSINOPHILS PERCENT AUTO 1.2 % (0.0-6.0); HEMOGLOBIN 12.3 g/dL (12.0-16.0); IMMATURE GRAN ABSOLUTE AUTO 0.15 K/uL (0.00-0.05); IMMATURE GRAN PERCENT AUTO 1.1 % (0.0-0.4); LYMPHOCYTES ABSOLUTE AUTO 1.58 K/uL (1.00-4.80); LYMPHOCYTES PERCENT AUTO 11.9 % (24.0-44.0); MEAN CORPUSCULAR HEMOGLOBIN 27.3 pg (28.0-32.0); MEAN CORPUSCULAR HGB CONC 32.4 g/dL (32.0-36.0); MEAN CORPUSCULAR VOLUME 84.4 fL (83.0-99.0); MEAN PLATELET VOLUME 10.8 fL (9.4-12.3); MONOCYTES ABSOLUTE AUTO 0.55 K/uL (0.00-0.80); MONOCYTES PERCENT AUTO 4.1 % (0.0-8.0); NEUTROPHILS ABSOLUTE AUTO 10.83 K/uL (1.80-7.70); NEUTROPHILS PERCENT AUTO 81.3 % (41.0-71.0); PLATELET COUNT,PLT 250 K/uL (150-400); WHITE BLOOD CELL COUNT,WBC 13.32 K/uL (3.9-11.3)
[2024-08-18] MEDS: Iopamidol 755 MG/ML 500 ML Multipack Bottle IVPUSH STA (15:25)
[2024-08-18 15:34] LABS: A/G RATIO 1.1 (0.9-1.6); ALANINE AMINOTRANSFERASE,ALT 29 IU/L (14-63); ALBUMIN 3.6 g/dL (3.4-5.0); ALKALINE PHOSPHATASE 76 U/L (46-116); ASPARTATE AMNIOTRANSFERASE,AST 26 IU/L (15-37); BILIRUBIN TOTAL 0.4 mg/dL (0.2-1.0); BLOOD UREA NITROGEN,BUN 17 mg/dL (7.0-18.0); CALCIUM 8.7 mg/dL (8.5-10.1); CARBON DIOXIDE,CO2 24.5 mmol/L (21.0-32.0); CHLORIDE,CL 103 mmol/L (98-107); CREATINE KINASE,CK 188 U/L (26-308); CREATININE 0.9 mg/dL (0.6-1.0); EST CRCL DRUG DOSING (CG) 62.42 mL/min; GLUCOSE RANDOM 100 mg/dL (74-106); LIPASE 37 U/L (16-77); POTASSIUM,K 3.5 mmol/L (3.5-5.1); PROTEIN TOTAL,TP 6.8 g/dL (6.4-8.2); SODIUM,NA 138 mmol/L (136-145)
[2024-08-18 15:37] LABS: ESTIMATED GFR 76 mL/min (>60)
[2024-08-18 15:38] LABS: INR 0.97 (0.86-1.11)
[2024-08-18 15:39] LABS: LACTIC ACID 2.1 mmol/L (0.4-2.0)
[2024-08-18] MEDS: Sodium Chloride 0.9% 1,000 ML IV ONE (15:51)
[2024-08-18] MEDS: HYDROmorphone 1 MG/ML Syringe IVPUSH ONE (16:24)
[2024-08-18] MEDS: Sodium Chloride 0.9% 1,000 ML IV SCH (16:24)
[2024-08-18] MEDS: fentaNYL 100 MCG/2 ML SDV IVPUSH ONE (17:57)
== END 2024-08-18 18:59 ==
LOC: MW.ED 14:42
DX: S32.512A Fracture of superior rim of left pubis, initial encounter for closed fracture (principal); S32.10XA Unspecified fracture of sacrum, initial encounter for closed fracture; I10 Essential (primary) hypertension; J45.909 Unspecified asthma, uncomplicated; Z91.018 Allergy to other foods; Z88.0 Allergy status to penicillin; Z88.2 Allergy status to sulfonamides; Z91.048 Other nonmedicinal substance allergy status; Z79.899 Other long term (current) drug therapy; W22.8XXA Striking against or struck by other objects, initial encounter; Y93.89 Activity, other specified
CPT/HCPCS: 36415; 70450; 71045; 71260; 72125; 72170; 73552; 73560; 73590; 74177; 80053; 82550; 83605; 83690; 84484; 84703; 85025; 85610; 85730; 86850; 86900; 86901; 96361; 96374; 96375; 96376; 99285; J1171; J2405; J3010; J7030; J7120; Q9967; 72128-26; 72131-26; 99284

== ENCOUNTER 2024-09-10 14:08 | Emergency (ER) | payer MEDICAID, OTHER ==
[2024-09-10 15:08] VITALS: BP 108/39; PULSE 62
== END 2024-09-10 17:45 | disposition left against medical advice (07) ==
LOC: MW.ED 14:08
DX: Z53.21 Procedure and treatment not carried out due to patient leaving prior to being seen by health care provider (principal)